=== PATIENT | female | born 1990 | race Caucasian/White ===

== ENCOUNTER 2018-10-11 14:35 | Emergency (ER) | payer OTHER ==
[~2018-10-11] VITALS: Ht 152.4 cm; Wt 45.0 kg
[2018-10-11 15:14] VITALS: BP 106/70
[2018-10-11] MEDS ORDERED: ketorolac tromethamine 15mg/ml inj. IM ONE (16:55)
[2018-10-11 17:10] LABS: CLARITY,URINE SLIGHTLY CLOUDY (Clear); COLOR,URINE YELLOW (Yellow); GLUCOSE, URINE NEGATIVE (Neg); KETONES,URINE TRACE mg/dl (Neg); LEUKOCYTE ESTERASE ,URINE NEGATIVE (Neg); NITRITES, URINE NEGATIVE (Neg); OCCULT BLOOD,URINE LARGE (Neg); PH,URINE 6.5 (4.8-8.0); PROTEIN,URINE TRACE mg/dl (Neg); UROBILINOGEN,URINE 0.2 E.U/dL (0.2-1.0)
[2018-10-11 17:11] LABS: UA COLLECTION TYPE VOIDED; URINE HCG NEGATIVE (NEG)
[2018-10-11 17:17] LABS: WBC,URINE NONE SEEN /HPF (0-4)
[2018-10-11 17:18] LABS: BACTERIA,URINE NONE SEEN /HPF (Neg); MUCUS STRANDS FEW /LPF (Neg); RBC,URINE 50-100 /HPF (0-2); SQUAMOUS EPITHELIAL CELL,UR NONE SEEN /LPF (FEW)
== END 2018-10-11 18:21 | disposition home or self-care (01) ==
LOC: ER 14:36
DX: R10.2 Pelvic and perineal pain (principal); R10.31 Right lower quadrant pain; R10.32 Left lower quadrant pain; Z98.51 Tubal ligation status
CPT/HCPCS: 76830; 76856; 81001; 81025; 96372; 99284; J1885

== ENCOUNTER 2019-02-03 19:27 | Emergency (ER) | payer OTHER ==
[~2019-02-03] VITALS: Ht 152.4 cm; Wt 43.2 kg
[2019-02-03] MEDS ORDERED: ketorolac trometh. 30mg/ml inj. IV ONE (19:55)
[2019-02-03] MEDS ORDERED: normal saline 1000ML IV soln IVB ONE (19:55)
[2019-02-03] MEDS ORDERED: ondansetron/PF 4mg/2ml inj IV ONE (19:55)
[2019-02-03 20:00] LABS: BASOPHILS # (AUTO) 0.1 X10'3 (0-0.2); BASOPHILS % (AUTO) 0.3 % (0-1); EOSINOPHILS % (AUTO) 0 % (0-6); HEMATOCRIT 42.1 % (35.0-45.0); HEMOGLOBIN 13.8 g/dl (12.0-16.0); LYMPHOCYTES # (AUTO) 1.4 X10'3 (1.1-4.8); LYMPHOCYTES % (AUTO) 8.6 % (21-51); MEAN CORPUSCULAR HEMOGLOBIN 29.6 PG (27.0-31.0); MEAN CORPUSCULAR HGB CONC 32.8 g/dL (33.0-36.5); MEAN CORPUSCULAR VOLUME 90.1 FL (78-98); MEAN PLATELET VOLUME 8.3 FL (7.4-10.4); MONOCYTES # (AUTO) 0.4 X10'3 (0-0.9); MONOCYTES % (AUTO) 2.7 % (2-12); NEUTROPHILS # (AUTO) 14.2 X10'3 (1.8-7.7); NEUTROPHILS % (AUTO) 88.4 % (42-75); PLATELET COUNT 289 X10'3 (140-440); RED BLOOD COUNT 4.67 X10'6 (4.20-5.60); RED CELL DISTRIBUTION WIDTH 12.8 % (11.5-14.5); WHITE BLOOD COUNT 16.1 X10'3 (4.5-11.0)
[2019-02-03] MEDS: morphine 4 MG/ML inj SYRINge IV PRN ×2 (20:07→21:27)
[2019-02-03] MEDS ORDERED: tamsulosin 0.4mg capsule PO ONE (20:07)
[2019-02-03 20:17] LABS: ALANINE AMINOTRANSFERASE 21 U/L (12-78); ALBUMIN 4.3 G/DL (3.4-5.0); ALBUMIN/GLOBULIN RATIO 1.3 (1.1-1.5); ALKALINE PHOSPHATASE 54 IU/L (46-116); ANION GAP 10 (8-16); ASPARTATE AMINO TRANSFERASE 11 U/L (10-37); BILIRUBIN,TOTAL 0.5 MG/DL (0.1-1.0); BLOOD UREA NITROGEN 11 MG/DL (7-18); BUN/CREATININE RATIO 12.4 (6.6-38.0); CALCIUM 9.4 MG/DL (8.5-10.1); CHLORIDE 101 MMOL/L (99-107); CREATININE 0.89 MG/DL (0.40-0.90); GLUCOSE 117 MG/DL (70-104); POTASSIUM 3.9 MMOL/L (3.5-5.1); SODIUM 136 MMOL/L (135-145); TOTAL PROTEIN 7.7 G/DL (6.4-8.2); eGFR 74 ML/MIN
[2019-02-03] MEDS ORDERED: CefTRIAXone 2gm/D5W 50ml 50 ML IV ONE (20:30)
[2019-02-03] MEDS ORDERED: morphine 4 MG/ML inj SYRINge IV ONE (20:40)
[2019-02-03] MEDS ORDERED: LORazepam 2 mg/ml vial IV ONE (20:40)
[2019-02-03] MEDS ORDERED: NAPR-56 PO (20:43)
[2019-02-03] MEDS ORDERED: ONDA4TAB6 PO (20:43)
[2019-02-03] MEDS ORDERED: FLO0.4C PO (20:43)
[2019-02-03] MEDS ORDERED: PROC25SU31 RC (20:43)
[2019-02-03] MEDS ORDERED: tamsulosin 0.4mg capsule PO SCH (21:00)
[2019-02-03] MEDS ORDERED: proCHLORperazine 10 MG/2 ml inj IV ONE (21:25)
[2019-02-03 21:30] VITALS: BP 103/58
[2019-02-03] MEDS ORDERED: ondansetron 4mg rapidly disintigrating tab PO ONE (22:50)
== END 2019-02-03 23:12 | disposition home or self-care (01) ==
LOC: ER 19:28
DX: G89.18 Other acute postprocedural pain (principal); N23 Unspecified renal colic; E86.0 Dehydration; Z87.442 Personal history of urinary calculi; Z98.51 Tubal ligation status; Z79.899 Other long term (current) drug therapy
CPT/HCPCS: 36415; 80053; 85025; 85610; 96361; 96365; 96366; 96375; 96376; 99284; J0696; J0780; J1885; J2270; J2405; J7030